=== PATIENT | female | born 1970 | race Hispanic/Latino ===

== ENCOUNTER → 2018-02-09 | Day surgery (SDC) | payer BC ==
[~2018-02-09] MED LIST: CEFAZOLIN SOD 1 GM VIAL ONE; DEXAMETHASONE SOD PHOS INJ 4 MG/ML VIAL ONE; EPINEPHRINE HCL INJ 1 MG/ML AMP ONE; ETHINYL ESTRADIOL PO; FENTANYL CITRATE/PF 100MCG/2 ML INJ ONE; GLYCOPYRROLATE INJ 1MG/ 5 ML SYR ONE; KETOROLAC TROMETHAMINE 30 MG/ML VIAL ONE; KLONOPIN1 MG PO; LIDOCAINE 2%/ EPINEPHRINE 20ML MDV ONE; LIDOCAINE HCL 2% LOCAL INJ 5 ML SDV VIAL INJ ONE; LISINOPRIL10 MG PO; MIDAZOLAM HCL 2 MG/2 ML VIAL ONE; MULTIVITAMINS1 EAC7 PO; NEOSTIGMINE 5 MG/5ML SYR ONE; NORETHINDRONE PO; ONDANSETRON HCL INJ 2 MG/ML VIAL ONE; PROPOFOL IV EMULSION 10 MG/ML 20 ML VIAL ONE; ROPIVACAINE 0.5% 5 MG/ML 30 ML SDV ONE; SEVOFLURANE INHAL SOLN 250 ML PEN BTL ONE; Z MELATONIN PO; Z.0.FLEXERIL5 MG PO; Z.0.ULTRAM50 MG PO; ZYRTEC10 MG PO; [UNRECOGNIZED DRUG - OTHER]; [UNRECOGNIZED DRUG - OTHER] PO
--- OUTSIDE RECORDS SUMMARY | 2018-02-09 06:48 | XMS REPORT ---
Author Organization Unknown Address [address] [place] [address] Phone [phone] Care Team Providers Care Interventional Sale Consultant Name Role Phone NUPUR PONCE MD 110 [phone] Allergies Code Code System Name Reaction Severity Status Onset 94552 RxNorm Antivert Deactivated NKDA Medications Name Status Start Date Stop Date Adipex-P 37.5 mg tablet Take 1 tablet every day by oral route as directed for 30 days. Active Not available amoxicillin 500 mg capsule Completed 07/17/2016 amoxicillin 875 mg-potassium clavulanate 125 mg tablet Completed 2016 azithromycin 250 mg tablet Completed 10/06/2016 benzonatate 100 mg capsule Completed 05/04/2017 vzkyydawaqcklrp-qjfshzxhndaqqmk-YM 2 mg-30 mg-10 mg/5 mL syrup Completed 05/04/2017 ceftriaxone 500 mg solution for injection Take 500 mg by injection route. Completed 10/06/2016 cephalexin 500 mg capsule Completed 07/17/2016 clonazepam 1 mg tablet Active Not available cyclobenzaprine 10 mg tablet Completed 07/17/2016 cyclobenzaprine 5 mg tablet Completed 07/17/2016 Depo-Medrol 80 mg/mL suspension for injection Take 80 mg by injection route. Completed 10/06/2016 fluconazole 100 mg tablet Completed 07/17/2016 Glucosamine 1 tab a day Active Not available Guaifenesin AC 10 mg-100 mg/5 mL oral liquid Completed 10/06/2016 ibuprofen 600 mg tablet Completed 02/05/2017 ibuprofen 800 mg tablet Completed 07/17/2016 levocetirizine 5 mg tablet Completed 07/17/2016 lisinopril 10 mg tablet Take 1 tablet every day by oral route as directed for 90 days. Active Not available magnesium 1 tab a day Completed 12/29/2017 meclizine 25 mg tablet Completed 07/17/2016 metronidazole 0.75 % vaginal gel Completed 02/05/2017 multivitamin 1 tab a day Active Not available naproxen 500 mg tablet Active Not available ProAir HFA 90 mcg/actuation aerosol inhaler Completed 10/06/2016 sertraline 50 mg tablet Completed 12/29/2017 temazepam 30 mg capsule Completed 07/17/2016 terconazole 0.4 % vaginal cream Completed 07/17/2016 tramadol 50 mg tablet Completed 07/17/2016 Vicodin 5 mg-300 mg tablet Completed 07/17/2016 Vitamin D2 50,000 unit capsule Active Not available Wellbutrin SR 150 mg tablet, 12 hr sustained-release Take 1 tablet every day by oral route as directed for 30 days. Active Not available [place] Fe 0.4 mg-35 mcg (21)/75 mg (7) chewable tablet Completed 2017 zolpidem 10 mg tablet Active Not available Zyrtec 10 mg capsule Take 1 capsule every day by oral route. Active Not available Problems Name Status Onset Date Source Anxiety Active 10/06/2016 Insomnia Active 10/06/2016 Hypertensive Disorder Active 10/06/2016 Procedures Date Name Performed by 09/21/2011 Other Information not available 09/21/1979 Foot/toes Surgery Procedure Information not available 09/21/1978 Other Information not available 09/21/1977 Other Information not available 05/04/2017 MAMMO, Screening, Bilateral [facility] [address] [place] [address] (Work [address]) 05/04/2017 US, Breast [facility] [address] [place] [address] (Work Place) Notes: ROTATOR CUFF SURGERY-2012 Lab Results Date Name Specimen Result Interpretation Description Value Range Status Address 02/05/2017 CMP, Serum or Plasma Alt 23 U/L 0-55 U/L Final [facility] Laboratory: [address] Ast 21 U/L 5-34 U/L Final [facility] Laboratory: [address] [facility] [place] Bun 13 mg/dL 7-19 mg/dL Final [facility] Laboratory: [address] [place] [address] [place] Alk Phos 55 unit/L 40-150 unit/L Final [facility] Laboratory: [address] [facility] [place] High Glucose 100 mg/dL 70-99 mg/dL Final [facility] Laboratory: [address] [place] [address] [place] Albumin 3.7 g/dL 3.5-5.0 g/dL Final [facility] [address] [facility] Creat[facility] 0.77 mg/dL 0.57-1.11 mg/dL Final [facility] [address] [facility] Non- >60 mL/min/1.73m2 >60 mL/min/ 1.73m2 Final [facility] Laboratory: [address] Total Bilirubin 0.6 mg/dL 0.2-1.2 mg/dL Final [facility] Laboratory: [address] eGFR - >60 mL/min/1.73m2 >60 mL/min/1.73m2 Final [facility] [address] [facility] Sodium 141 mEq/L 136-145 mEq/L Final [facility] Laboratory: [address] Potassium 4.0 mEq/L 3.5-5.1 mEq/L Final [facility] Laboratory: [address] Chloride 105 mmol/L 98-107 mmol/L Final [facility] Laboratory: [address] Total Protein 7.2 g/dL 6.4-8.3 g/dL Final [facility] Laboratory: [address] [place] [address] Calcium 9.3 mg/dL 8.4-10.2 mg/dL Final [facility] Laboratory: [address] [place] [address] Co2 26.7 mmol/L 22.0-29.0 mmol/L Final [facility] Laboratory: [address] Anion Gap 9 calc Final [facility] [address] [facility] 02/05/2017 Lipid Panel, Serum High Hdl 99 mg/dL 40-60 mg/dL Final [facility] Laboratory: [address] Triglyceride 116 mg/dL 0-149 mg/dL Final [facility] Laboratory: [address] VLDL Calc. 23 mg/dL Final [facility] Laboratory: [address] cholesterol/HDL Ratio 3 mg/dL Final [facility] Laboratory: [address] High non-HDL Cholesterol Calc. 176 mg/dL 0-160 mg/dL Final [facility] Laboratory: [address] High Cholesterol 275 mg/dL 0-199 mg/dL Final [facility] Laboratory: [address] High LDL Calc. 153 mg/dL 0-130 mg/dL Final [facility] Laboratory: [address] [place] [address], [place] 02/05/2017 TSH, Serum or Plasma Tsh 1.715 uIU/mL 0.350-4.940 uIU /mL Final [facility] Laboratory: [address] [address], [place] 02/05/2017 Vitamin D, 25-Hydroxy, Total, Serum Low Vitamin D 25OH 29.4 NG/mL 30.0-96.0 NG/mL Final [facility] Laboratory: [address] [place] [address], [place] 11/13/2015 CBC W/ Auto Diff No observation recorded. [facility]: [id number], [place] 02/21/2015 CBC W/ Auto Diff No observation recorded. [facility]: [address], [place] Rapid Strep Group a, Throat No observation recorded. [facility] [facility]: [facility] Rapid Strep Group a, Throat Strep negative [facility] [facility] : [address] [facility] Past Encounters 12/29/2017 Mixed Anxiety and Depressive Disorder Tl Jiménez MD: [address] [place] [phone], Ph. 12/09/2017 Abnormal Weight Gain; Insomnia; Anxiety; Benign Essential Hypertension; Depressive Disorder; Headache Rohan Kelley MD: [address] [place] [phone], Ph. 09/01/2017 Insomnia; Anxiety; Pain in Right Knee; Benign Essential Hypertension; Vitamin D Deficiency; Abnormal Weight Gain Tl Jiménez MD: [address] [place] [phone], Ph. 06/25/2017 Insomnia; Abnormal Weight Gain; Vitamin D Deficiency; Body Mass Index 25-29 - Overweight Tl Jiménez MD: [address] [place] [phone], Ph. 05/04/2017 Insomnia; Anxiety; Abnormal Weight Gain; Benign Essential Hypertension; Vitamin D Deficiency; Family History of Malignant Neoplasm of Breast Tlmelisa Jiménez MD: [address] [place] [phone], Ph. 03/30/2017 Upper Respiratory Infection; Abnormal Weight Gain; Vitamin D Deficiency; Body Mass Index 25-29 - Overweight; Benign Essential Hypertension Tl Jiménez MD: [address] [place] [phone], Ph. 02/05/2017 Anxiety; Insomnia; Benign Essential Hypertension; Abnormal Weight Gain; Pain in Right Knee; Vitamin D Deficiency Tl Jiménez MD: [address] [place] [phone], Ph. 10/06/2016 Obesity; Benign Essential Hypertension; Insomnia; Anxiety; Vitamin D Deficiency ; Acute Pharyngitis Tl Jiménez MD: [address] [place] [phone], Ph. 07/29/2016 Acute Bronchitis; Benign Essential Hypertension Tl Jiménez MD: [address] [place] [phone], Ph. 07/17/2016 Acute Bronchitis; Obesity Rohan Kelley MD: [address] [place] [phone], Ph. Social History Smoking Status Never Smoker Vaccine List Vaccine Type influenza, injectable, quadrivalent 07/22/2015 influenza, unspecified formulation 06/21/2016 06/25/2017 Plan of Care Patient Instructions otc alleve/motin/tylenol for h/a,to arrange own psychology referral,continue all meds ,start sertraline rtc 2 weeks resume exercise program ,otc miralax prn for constipation Reminders Provider Appointments None recorded. Lab None recorded. Referral None recorded. Procedures None recorded. Surgeries None recorded. Imaging None recorded. Vitals 12/29/2017 04:15PM Est Patient Height Weight Blood Pressure 5 ft 3 in 118/80 mm[Hg] 12/09/2017 04:15PM Est Patient Height Weight BMI Blood Pressure 5 ft 3 in 165 lbs 29.2 kg/m2 124/88 mm[Hg] 09/01/2017 11:45AM Est Patient Height Weight BMI Blood Pressure 5 ft 3 in 157 lbs 27.8 kg/m2 134/84 mm[Hg] 06/25/2017 11:45AM Work In Same Day Height Weight BMI Blood Pressure 5 ft 3 in 156 lbs 27.6 kg/m2 130/80 mm[Hg] 05/04/2017 01:30PM Est Patient Height Weight BMI Blood Pressure 5 ft 3 in 161 lbs 28.5 kg/m2 136/90 mm[Hg] 03/30/2017 02:45PM Est Patient Height Weight BMI Blood Pressure 5 ft 3 in 161 lbs 28.5 kg/m2 122/88 mm[Hg] 02/05/2017 04:15PM Est Patient Height Weight BMI Blood Pressure 5 ft 3 in 164 lbs 29.1 kg/m2 126/90 mm[Hg] 10/06/2016 03:30PM Est Patient Height Weight BMI Blood Pressure 5 ft 3 in 167 lbs 29.6 kg/m2 133/98 mm[Hg] 07/29/2016 04:30PM Work In Same Day Height Weight Blood Pressure 5 ft 3 in 148/94 mm[Hg] 07/17/2016 02:00PM Est Patient Height Weight BMI Blood Pressure 5 ft 3 in 172 lbs 30.5 kg/m2 128/81 mm[Hg]
--- NOTE | 2018-02-09 13:27 | Operative Report ---
DATE OF PROCEDURE: February 09, 2018 SOLDERER: Jaiden Wheatley PA-C The patient was brought to the operating room for induction of anesthesia. Throughout this case, my PA's assistance was necessary for retraction of soft tissue and positioning of the extremity. This allows for efficient and technically successful execution of the operation and is considered medically necessary. PREOPERATIVE DIAGNOSIS: Left shoulder labral tear. POSTOPERATIVE DIAGNOSES 1. Left shoulder rotator cuff tear. 2. Biceps tendinitis. PROCEDURES: Left shoulder arthroscopy, subacromial decompression, biceps tenodesis and rotator cuff repair. INDICATIONS: The patient is a 47-year-old active lady who has a long history of left shoulder pain. She has been treated with extensive conservative management and feels the symptoms are severely compromising her quality of life. An MRI has shown evidence of a labral tear. This was several months ago. We have discussed the findings and options and plan on a left shoulder arthroscopy with repairs as indicated. The risks and benefits and lengthy recovery were all explained. She has been through this in the right shoulder. She is familiar with the recovery. She states she understands and wishes to proceed. DESCRIPTION OF PROCEDURE: The patient was brought to the operating room and placed under general anesthetic. She received a regional block and prophylactic antibiotics in the holding area. She was positioned in the beach-chair position on the shoulder table. Her left upper extremity was prepped and draped in a sterile manner. A preoperative time out was performed. A standard posterior arthroscopy portal was established. The shoulder was insufflated with sterile saline and systematically inspected. The glenohumeral surfaces were well preserved. There was an obvious full-thickness tear of the supraspinatus and infraspinatus. There was a partial thickness tear of the subscapularis. The labrum was intact and stable. The biceps tendon had extensive fraying. A lateral working portal was established. A 4.5-mm Electroblade shaver was introduced into the shoulder joint. The partial tear of the subscapularis was debrided back to healthy tissue. The biceps tendon was debrided. The greater tuberosity was decorticated. The scope was placed into the subacromial space. A subacromial bursectomy and gentle bone decompression were performed. The rotator cuff was debrided back to healthy tissue. An Arthrex double row SpeedBridge construct was used to repair the rotator cuff and perform a biceps tenodesis. A pilot safety inspector hole was placed at the articular margin near the bicipital groove. This had been gently decorticated. The auxiliary stitch was passed in a locking fashion around the biceps tendon. This was secured down to bleeding cancellous bone with arthroscopic knot tying. The remainder of the biceps tendon was resected from the supraglenoid tubercle. An ArthPodioion suture passer was then used to place the FiberTape stitches through healthy portion of the rotator cuff. A secondary pilot safety inspector hole was placed more posteriorly. The bioabsorbable anchor was seated, and the FiberTape stitches were passed through the posterior portion of the rotator cuff. These were used to repair the tendon down to bleeding cancellous bone and securely fixed using secondary suture anchors in the proximal lateral humeral cortex. Nice secure fixation was obtained. Final photographs were taken. The shoulder was irrigated, and the arthroscopic instruments were removed. The portal incisions were closed with nylon stitches. An anterior shuttle portal had been established. The shoulder was placed into a sterile bandage and an UltraSling. She was extubated and transported to the recovery room in stable condition. There was no blood loss, and all needle and sponge counts were correct. Job#: [id number]
== END | disposition home or self-care (01) ==
LOC: OR 06:45
PROVIDERS: ATTEND Specialist
DX: S46.022A Laceration of muscle(s) and tendon(s) of the rotator cuff of left shoulder, initial encounter (principal); S43.432A Superior glenoid labrum lesion of left shoulder, initial encounter; M75.22 Bicipital tendinitis, left shoulder; I10 Essential (primary) hypertension; F41.9 Anxiety disorder, unspecified; F32.9 Major depressive disorder, single episode, unspecified; X50.0XXA Overexertion from strenuous movement or load, initial encounter; Z01.810 Encounter for preprocedural cardiovascular examination
CPT/HCPCS: 29827; 29828; 81025; 93005; J0171; J0690; J1100; J1885; J2001 ×2; J2250; J2405; J2795

== ENCOUNTER → 2018-04-20 | Outpatient (RCR) | payer BC ==
[~2018-04-20] MED LIST changes: -CEFAZOLIN SOD 1 GM VIAL ONE; -DEXAMETHASONE SOD PHOS INJ 4 MG/ML VIAL ONE; -EPINEPHRINE HCL INJ 1 MG/ML AMP ONE; -FENTANYL CITRATE/PF 100MCG/2 ML INJ ONE; -GLYCOPYRROLATE INJ 1MG/ 5 ML SYR ONE; -KETOROLAC TROMETHAMINE 30 MG/ML VIAL ONE; -LIDOCAINE 2%/ EPINEPHRINE 20ML MDV ONE; -LIDOCAINE HCL 2% LOCAL INJ 5 ML SDV VIAL INJ ONE; -MIDAZOLAM HCL 2 MG/2 ML VIAL ONE; -NEOSTIGMINE 5 MG/5ML SYR ONE; -ONDANSETRON HCL INJ 2 MG/ML VIAL ONE; -PROPOFOL IV EMULSION 10 MG/ML 20 ML VIAL ONE; -ROPIVACAINE 0.5% 5 MG/ML 30 ML SDV ONE; -SEVOFLURANE INHAL SOLN 250 ML PEN BTL ONE
== END ==
LOC: PT 04-05 14:54
PROVIDERS: ATTEND Specialist
DX: Z47.89 Encounter for other orthopedic aftercare (principal); S46.022D Laceration of muscle(s) and tendon(s) of the rotator cuff of left shoulder, subsequent encounter; M25.512 Pain in left shoulder; M25.612 Stiffness of left shoulder, not elsewhere classified; M62.81 Muscle weakness (generalized)

== ENCOUNTER → 2018-05-21 | Outpatient (RCR) | payer BC | LOC: PT 04-21 14:55 | PROVIDERS: ATTEND Specialist | DX: S46.022D Laceration of muscle(s) and tendon(s) of the rotator cuff of left shoulder, subsequent encounter (principal); Z47.89 Encounter for other orthopedic aftercare; M25.612 Stiffness of left shoulder, not elsewhere classified; M62.81 Muscle weakness (generalized) ==

== ENCOUNTER 2018-06-16 17:00 | Outpatient (RCR) | payer BC | END 2018-06-20 | LOC: PT 17:00 | PROVIDERS: ATTEND Specialist | DX: S46.022D Laceration of muscle(s) and tendon(s) of the rotator cuff of left shoulder, subsequent encounter (principal); Z47.89 Encounter for other orthopedic aftercare; M25.612 Stiffness of left shoulder, not elsewhere classified; M62.81 Muscle weakness (generalized) ==

== ENCOUNTER 2018-06-30 16:57 | Outpatient (RCR) | payer BC | END 2018-07-21 | LOC: PT 16:57 | PROVIDERS: ATTEND Specialist | DX: S46.022D Laceration of muscle(s) and tendon(s) of the rotator cuff of left shoulder, subsequent encounter (principal); Z47.89 Encounter for other orthopedic aftercare; M25.612 Stiffness of left shoulder, not elsewhere classified; M62.81 Muscle weakness (generalized) ==

== ENCOUNTER → 2021-12-02 | Outpatient (CLI) | payer BC | LOC: MRI 11:13 | PROVIDERS: ATTEND Physician Assistant | DX: S93.422A Sprain of deltoid ligament of left ankle, initial encounter (principal); M25.572 Pain in left ankle and joints of left foot; G89.29 Other chronic pain ==